=== PATIENT | male | born 1960 | race Caucasian/White ===

== ENCOUNTER 2021-11-28 09:18 | Outpatient (CLI) | payer BC, SELFPAY ==
[2021-11-28 10:32] LABS: Albumin* 3.9 g/dL (3.3-5.0)
[2021-11-28 10:33] LABS: Chloride* 104 mmol/L (96-114); Potassium* 4.3 mmol/L (3.6-5.1); Sodium* 137 mmol/L (135-149)
[2021-11-28 10:35] LABS: Bilirubin Total* 0.5 mg/dL (0.1-1.5); Carbon Dioxide* 26 mmol/L (20-32); Cholesterol* 196 mg/dL (90-199); Creatinine* 0.8 mg/dL (0.5-1.5); Estimated Glomerular Filt Rate 99 ml/min
[2021-11-28 10:36] LABS: Alanine Aminotransferase* 30 U/L (4-50); Alkaline Phosphatase* 110 U/L (40-150); Aspartate Amino Transferase* 31 U/L (12-35); Blood Urea Nitrogen* 16 mg/dL (7-30); Calcium* 8.7 mg/dL (8.4-10.6); Glucose* 127 mg/dL (60-115); Triglycerides* 148 mg/dL (40-149)
[2021-11-28 10:37] LABS: HDL Cholesterol* 59 mg/dL (>=40); LDL Cholesterol Calculated 107 mg/dL (<100)
== END 2021-11-28 09:19 | disposition home or self-care (01) ==
PROVIDERS: PCP Internal Medicine; Visit Provider Internal Medicine
DX: Z01.818 Encounter for other preprocedural examination (principal); E78.5 Hyperlipidemia, unspecified
CPT/HCPCS: 80053; 80061

== ENCOUNTER 2022-02-19 21:00 | Outpatient (CLI) | payer BC, SELFPAY ==
--- NOTE | 2022-03-01 13:00 | P.SLS_ITS ---
Sleep Study Details Details Interpreting Provider: Demian Heredia MD Date of Sleep Study: 02/19/2022 Sleep Study Details: STUDY TYPE:? Home ? BMI:? 26.2 ORDERING PROVIDER:? Cabrera INDICATION:? Concerns about sleep apnea ? SLEEP SUMMARY:? 502.3 monitored minutes RESPIRATORY SUMMARY:? AHI 11.5, left lateral AHI 7.5, right lateral AHI 34.5 Low oxygen 86 6.9% of study oxygen less than 90% 27.2% of night spent snoring PERIODIC LIMB MOVEMENTS OF SLEEP:? Not recorded CARDIAC:? 49-98, mean 58.5 IMPRESSION:? Mild sleep apnea worse in the right lateral position. With si gnificant desaturations RECOMMENDATION: Treatment options would include AutoSet CPAP, dental appliance and/or airway expansion surgery
== END 2022-02-19 21:01 | disposition home or self-care (01) ==
LOC: SLEEP 05-01 12:11
PROVIDERS: PCP Internal Medicine; Visit Provider Internal Medicine
DX: G47.33 Obstructive sleep apnea (adult) (pediatric) (principal)
CPT/HCPCS: 95806

== ENCOUNTER 2022-07-18 08:00 | Outpatient (CLI) | payer BC, SELFPAY | END 2022-07-18 08:01 | disposition home or self-care (01) | LOC: NFLDREF 14:33 | PROVIDERS: PCP Internal Medicine; Referring Provider Internal Medicine; Visit Provider Internal Medicine | DX: R73.09 Other abnormal glucose (principal); E78.5 Hyperlipidemia, unspecified; E11.9 Type 2 diabetes mellitus without complications; G45.9 Transient cerebral ischemic attack, unspecified; Z12.5 Encounter for screening for malignant neoplasm of prostate | CPT/HCPCS: 80053; 80061; 84153 ==

== ENCOUNTER 2022-08-03 07:43 | Outpatient (CLI) | payer BC, SELFPAY | END 2022-08-03 07:44 | disposition home or self-care (01) | PROVIDERS: PCP Internal Medicine; Visit Provider Internal Medicine | DX: G45.9 Transient cerebral ischemic attack, unspecified (principal); I34.0 Nonrheumatic mitral (valve) insufficiency | CPT/HCPCS: 93306 ==

== ENCOUNTER 2022-08-14 07:15 | Outpatient (CLI) | payer BC, SELFPAY ==
--- NOTE | 2022-08-14 07:15 | CRLHL7_ITS ---
For Patients: As a result of the Century Cures Act, medical imaging exams and procedure reports are released immediately into your electronic medical record. You may view this report before your referring provider. If you have questions, please contact your health care provider. INDICATION: Transient ischemic attack. TECHNIQUE: Sagittal T1 axial FLAIR T2 diffusion-weighted gadolinium-enhanced sagittal axial and coronal T1 weighted images of the brain. Fqah-[id number] magnetic resonance angiography of the intracranial [place] arteries. Ympa-mp-gwrmer and gadolinium-enhanced MRA images of the carotid arteries and vertebral arteries were also obtained. FINDINGS: MRI brain: Lateral 3rd and 4th ventricles are normal in size and shape there is no evidence of acute ischemic infarction. There are no areas of diffusion restriction. There is no evidence of intracranial hemorrhage. There is no mass effect. There are no enhancing intra-axial or extra-axial lesions brainstem and cerebellum are unremarkable. There is a partial left mastoid effusion. There is a large amount of fluid and air fluid level in the left maxillary antrum and opacification of bilateral ethmoid air cells consistent with inflammatory sinus disease. Partially empty sella the orbits and skullbase otherwise are unremarkable. MRA [place]: The distal internal carotid arteries are widely patent the basilar artery is congenitally small in caliber with origins of the bilateral posterior cerebral arteries the anterior middle and posterior cerebral arteries their proximal branches are patent hypoplastic right A-1 segment. No evidence of aneurysm or AVM. No large vessel occlusion is seen. MRA carotid arteries and vertebral arteries: Bilateral common carotid arteries internal and external carotid arteries appear widely patent. Bilateral vertebral arteries are patent. IMPRESSION: 1. No evidence of acute ischemic infarction, intracranial hemorrhage, mass or enhancing lesion. 2. Few tiny signal changes consistent with migraine or mild chronic microvascular ischemia. 3. Partial left mastoid effusion. Inflammatory paranasal sinus changes. Correlate clinically for symptoms of sinusitis. 4. Congenitally small caliber basilar artery. No large vessel occlusion aneurysm or AVM is seen. 5. No significant stenosis of the bilateral carotid arteries or bilateral vertebral arteries. Dictated by Sushant Mercer MD @ 08/14/2022 2:53:16 PM (Electronically Signed)
--- NOTE | 2022-08-14 07:15 | CRLHL7_ITS ---
For Patients: As a result of the Century Cures Act, medical imaging exams and procedure reports are released immediately into your electronic medical record. You may view this report before your referring provider. If you have questions, please contact your health care provider. INDICATION: Transient ischemic attack. TECHNIQUE: Sagittal T1 axial FLAIR T2 diffusion-weighted gadolinium-enhanced sagittal axial and coronal T1 weighted images of the brain. Cogp-ea-mmlsvk magnetic resonance angiography of the intracranial [place] of [place] arteries. Qwmy-pf-lrumaj and gadolinium-enhanced MRA images of the carotid arteries and vertebral arteries were also obtained. FINDINGS: MRI brain: Lateral 3rd and 4th ventricles are normal in size and shape there is no evidence of acute ischemic infarction. There are no areas of diffusion restriction. There is no evidence of intracranial hemorrhage. There is no mass effect. There are no enhancing intra-axial or extra-axial lesions brainstem and cerebellum are unremarkable. There is a partial left mastoid effusion. There is a large amount of fluid and air fluid level in the left maxillary antrum and opacification of bilateral ethmoid air cells consistent with inflammatory sinus disease. Partially empty sella the orbits and skullbase otherwise are unremarkable. MRA [place] of [place]: The distal internal carotid arteries are widely patent the basilar artery is congenitally small in caliber with origins of the bilateral posterior cerebral arteries the anterior middle and posterior cerebral arteries their proximal branches are patent hypoplastic right A-1 segment. No evidence of aneurysm or AVM. No large vessel occlusion is seen. MRA carotid arteries and vertebral arteries: Bilateral common carotid arteries internal and external carotid arteries appear widely patent. Bilateral vertebral arteries are patent. IMPRESSION: 1. No evidence of acute ischemic infarction, intracranial hemorrhage, mass or enhancing lesion. 2. Few tiny signal changes consistent with migraine or mild chronic microvascular ischemia. 3. Partial left mastoid effusion. Inflammatory paranasal sinus changes. Correlate clinically for symptoms of sinusitis. 4. Congenitally small caliber basilar artery. No large vessel occlusion aneurysm or AVM is seen. 5. No significant stenosis of the bilateral carotid arteries or bilateral vertebral arteries. Dictated by Sushant Mercer MD @ 08/14/2022 2:52:33 PM (Electronically Signed)
== END 2022-08-14 07:16 | disposition home or self-care (01) ==
LOC: MRI 07:15
PROVIDERS: PCP Internal Medicine; Visit Provider Internal Medicine
DX: G45.9 Transient cerebral ischemic attack, unspecified (principal)
CPT/HCPCS: 70544; 70549; 70553; A9575

== ENCOUNTER 2023-10-18 07:29 | Outpatient (CLI) | payer MEDICARE, BC, SELFPAY | END 2023-10-18 07:30 | disposition home or self-care (01) | PROVIDERS: PCP Internal Medicine; Referring Provider Internal Medicine; Visit Provider Internal Medicine | DX: E78.5 Hyperlipidemia, unspecified (principal); E11.9 Type 2 diabetes mellitus without complications; N40.0 Benign prostatic hyperplasia without lower urinary tract symptoms; Z12.5 Encounter for screening for malignant neoplasm of prostate | CPT/HCPCS: 80053; 80061; 82043; 82570; G0103 ==

== ENCOUNTER 2024-03-18 07:43 | Outpatient (CLI) | payer MEDICARE, BC, SELFPAY | END 2024-03-18 07:44 | disposition home or self-care (01) | LOC: NFLDREF 03-22 14:10 | PROVIDERS: PCP Internal Medicine; Referring Provider Internal Medicine; Visit Provider Internal Medicine | DX: E11.9 Type 2 diabetes mellitus without complications (principal); E78.5 Hyperlipidemia, unspecified | CPT/HCPCS: 80053; 80061 ==

== ENCOUNTER 2024-10-21 08:18 | Outpatient (CLI) | payer MEDICARE, BC, SELFPAY | END 2024-10-21 08:19 | disposition home or self-care (01) | LOC: NFLDREF 10-25 07:16 | PROVIDERS: PCP Internal Medicine; Referring Provider Internal Medicine; Visit Provider Internal Medicine | DX: E11.9 Type 2 diabetes mellitus without complications (principal); E78.5 Hyperlipidemia, unspecified; N40.0 Benign prostatic hyperplasia without lower urinary tract symptoms; Z12.5 Encounter for screening for malignant neoplasm of prostate; F41.9 Anxiety disorder, unspecified | CPT/HCPCS: 80053; 80061; 82043; 82570; G0103 ==